=== PATIENT | female | born 1940 | race Caucasian/White ===

== ENCOUNTER 2019-01-23 10:39 | Inpatient (IN) | payer MEDICARE, OTHER ==
[~2019-01-23] VITALS: Ht 152.4 cm; Wt 61.0 kg
[2019-01-23] MEDS ORDERED: ONDANSETRON 4 MG INJ IV STA (12:09)
[2019-01-23] MEDS ORDERED: morphine 4 MG/ML VIAL IV STA (12:09)
[2019-01-23] MEDS ORDERED: FAMOTIDINE 20 MG TAB PO STA (12:09)
[2019-01-23] MEDS ORDERED: SOD CHLORIDE 0.9% 1,000 ML IV STA (12:09)
--- NOTE | 2019-01-23 12:20 | ERD ---
ER Documentation Chief Complaint Chief Complaint EPIGASTRIC PAIN FOR 2 DAYS, N/V/D YESTERDAY, NOT TODAY. PAIN GOES TO BACK. HPI 78-year-old female no significant past medical history presents with her daughter who is interpreting. The patient has had approximately 2 days of epigastric abdominal pain that radiates to the bilateral back. Patient notes the pain is sharp, with associated nausea and vomiting. The emesis is nonbloody and nonbilious. 2 episodes of looser stool. No recent travel, sick contacts, antibiotics. She denies any chest pain or exertional symptoms. No clear triggers or alleviating factors. She denies any fevers. No abdominal surgery history. Symptoms are moderate to severe currently. ROS All systems reviewed and are negative except as per history of present illness. Medications Home Meds Discontinued Reported Medications [None] No Conflict Check 08/15/09 Allergies Allergies: Coded Allergies: No Known Drug Allergies (Verified Allergy, Unknown, 01/23/19) PMhx/Soc History of Surgery: No Hx Neurological Disorder: No Hx Respiratory Disorders: No Hx Cardiac Disorders: No Hx Miscellaneous Medical Probl: No Hx Alcohol Use: No Hx Substance Use: No Hx Tobacco Use: No FmHx Family History: No diabetes Physical Exam Vitals Vital Signs Date Temp Pulse Resp B/P (MAP) Pulse Ox O2 O2 Flow FiO2 Time Delivery Rate 01/23/19 67 14 178/71 98 Room Air 13:58 (106) 01/23/19 62 20 186/72 95 Room Air 12:34 (110) 01/23/19 97.5 73 18 218/79 98 10:42 (125) Physical Exam General: Well developed, well nourished, no acute distress Head: Normocephalic, atraumatic. Eyes: Pupils equally reactive, EOM intact ENT: Moist mucous membranes Neck: Supple, no lymphadenopathy Respiratory: Lungs clear bilaterally, no distress Cardiovascular: RRR, no murmurs, rubs, or gallops Abdominal: Soft with very mild epigastric abdominal tenderness, negative Amin sign, no tenderness to McBurney's point, no pulsatile mass. : Deferred MSK: No edema, no unilateral swelling, 5/5 strength Neurologic: Alert and oriented, moving all extremities, normal speech, no focal weakness, no cerebellar signs Skin: No rash Psych: Normal mood Result Diagram: 01/23/19 1218 01/23/19 1218 Results 24 hrs Laboratory Tests Test 01/23/19 12:18 White Blood Count 8.0 10^3/ul Red Blood Count 4.96 10^6/ul Hemoglobin 14.4 g/dl Hematocrit 43.1 % Mean Corpuscular Volume 86.9 fl Mean Corpuscular Hemoglobin 29.0 pg Mean Corpuscular Hemoglobin Concent 33.4 g/dl Red Cell Distribution Width 12.8 % Platelet Count 265 10^3/UL Mean Platelet Volume 9.5 fl Immature Granulocytes % 0.300 % Neutrophils % 78.3 % Lymphocytes % 14.3 % Monocytes % 5.8 % Eosinophils % 0.4 % Basophils % 0.9 % Nucleated Red Blood Cells % 0.0 /100WBC Immature Granulocytes # 0.020 10^3/ul Neutrophils # 6.2 10^3/ul Lymphocytes # 1.1 10^3/ul Monocytes # 0.5 10^3/ul Eosinophils # 0.0 10^3/ul Basophils # 0.1 10^3/ul Nucleated Red Blood Cells # 0.0 10^3/ul Sodium Level 141 mmol/L Potassium Level 4.0 mmol/L Chloride Level 103 mmol/L Carbon Dioxide Level 28 mmol/L Anion Gap 10 Blood Urea Nitrogen 15 mg/dl Creatinine 0.70 mg/dl Est Glomerular Filtrat Rate mL/min mL/min Glucose Level 105 mg/dl Calcium Level 9.1 mg/dl Total Bilirubin 0.5 mg/dl Direct Bilirubin 0.00 mg/dl Indirect Bilirubin 0.5 mg/dl Aspartate Amino Transf (AST/SGOT) 139 IU/L Alanine Aminotransferase (ALT/SGPT) 105 IU/L Alkaline Phosphatase 120 IU/L Troponin I < 0.012 ng/ml Total Protein 8.4 g/dl Albumin 4.1 g/dl Globulin 4.30 g/dl Albumin/Globulin Ratio 0.95 Lipase 337 U/L Current Medications Medications Dose Sig/Thomas Start Time Status Last (Trade) Ordered Route PRN Stop Time Admin Dose Reason Admin Sodium 1,000 ml @ Q1H STAT 01/23/19 DC 01/23/19 Chloride 1,000 mls/hr IV 12:09 01/23/19 12:57 13:08 Morphine 4 mg ONCE STAT 01/23/19 DC 01/23/19 Sulfate IV 12:09 01/23/19 12:58 (morphine) 12:14 Ondansetron 4 mg ONCE STAT 01/23/19 DC 01/23/19 HCl (Zofran IV 12:09 01/23/19 12:57 Inj) 12:14 Famotidine 20 mg ONCE STAT 01/23/19 DC 01/23/19 (Pepcid) PO 12:09 01/23/19 12:58 12:14 IV Flush 10 ml STK-MED 01/23/19 DC 01/23/19 (NS 10 ml) ONCE .ROUTE 13:01/23/19 13:13 13:09 Sodium 100 ml @ ud STK-MED 01/23/19 DC 01/23/19 Chloride ONCE .ROUTE 13:01/23/19 13:13 13:09 Iohexol 100 ml @ ud STK-MED 01/23/19 DC 01/23/19 ONCE .ROUTE 13:01/23/19 13:14 13:09 Ampicillin 100 ml @ ONCE ONCE 01/23/19 Sodium/ 100 mls/hr IVPB 14:00 01/23/19 Sulbactam 14:59 Sodium Procedures/MDM EKG, MONITORS, & DIAGNOSTIC IMAGING: EKG: I reviewed and interpreted a 12-lead EKG. Rhythm: Normal sinus rhythm ST Changes: No contiguous ST segment elevations T waves: No contiguous T wave inversions Impression: [No evidence of acute cardiac ischemia] CTA abdomen and pelvis IMPRESSION: Calcified plaque wall aorta without dissection or aneurysm. Cholelithiasis. Question gallbladder wall thickening versus pericholecystic fluid. Consider sonographic correlation if clinically indicated. 15 mm cystic mass head of pancreas. It is unclear if this represents a cystic tumor of the pancreas, small choledochal cyst or possibly a pseudocyst. This was present on the prior CT and is stable. Chronic compression fracture L2. 2 mm anterolisthesis L4-L5 without spondylolisthesis. US GB IMPRESSION: Cholelithiasis with gallbladder wall thickening and pericholecystic fluid may represent acute cholecystitis. This could be confirmed with a HIDA scan if clinically indicated.. LAB INTERPRETATION: I reviewed the laboratory testing and it shows mild transaminitis MEDICAL DECISION MAKING: Patient has nonspecific epigastric abdominal pain. The patient has nausea vomiting and loose stools which does raise the concern from a likely viral process. However, the patient's blood pressure is elevated. She does not have a known diagnosis of hypertension and therefore this could be sales representative facility services of the patient's pain however, the patient is describing abdominal pain rating to the back in the setting of significantly elevated blood pressure. This does raise a concern for possible aortic process though the patient does not have any obvious risk factors other than age. Patient has no chest pain no exertional symptoms therefore less likely acute coronary syndrome. Patient has no urinary symptoms, low concern for stone or urinary tract infection. Patient will benefit from broad work-up including laboratory testing, cardiac s creening and CTA of the abdomen and pelvis. ER COURSE: * An IV was established and the patient was given IV fluids and pain control medication. * Mild transaminitis prompt ultrasound of the gallbladder * ultrasound and CT are concerning for acute cholecystitis which would explain the patient's symptoms. The patient is n.p.o., started on Unasyn. No signs of sepsis. * General surgeon on-call was notified. CONSULTATION: General surgeon: Dr. Sanford DISPOSITION PLAN: Accepting care team and consultations: I discussed the current laboratory data, diagnostic imaging and emergency care provided. Admitting team: Panel team Admitting team indication: Insurance directed Departure Diagnosis: Primary Impression: Abdominal pain Abdominal location: epigastric Qualified Codes: R10.13 - Epigastric pain Additional Impression: Cholecystitis Condition: Stable LULY HARPER MD Jan 23, 2019 12:20
[2019-01-23] MEDS ORDERED: IOHEXOL 100 ML ONE (13:08)
[2019-01-23] MEDS ORDERED: SOD CHLORIDE 0.9% 100 ML ONE (13:08)
[2019-01-23] MEDS ORDERED: AMPICILLIN/SULB 3 GM/NS (PMX) 100 ML IVPB ONE (14:00)
[2019-01-23] MEDS ORDERED: ONDANSETRON 4 MG INJ IV PRN (15:00)
[2019-01-23] MEDS ORDERED: ACETAMINOPHEN 325 MG TAB PO PRN ×2 (15:00→17:30)
--- NOTE | 2019-01-23 17:16 | HP ---
Date/Time of Note Date/Time of Note DATE: 01/23/19 TIME: 17:07 Assessment/Plan VTE Prophylaxis SCD applied (from Nsg): Yes Pharmacological prophylaxis: NA/contraindicated Pharm contraindication: surgical contra Lines/Catheters IV Catheter Type (from Nrsg): Peripheral IV Assessment/Plan Hospital Course 1. Abdominal pain secondary to gallstone pancreatitis Lipase is elevated and ultrasound abdomen shows cholelithiasis with possible cholecystitis Surgery consultation obtained and plan is for lap snehal tomorrow, patient is medically stable for DC with no cardiac history or significant comorbidities, benefits outweigh risk N.p.o. except ice chips Monitor lipase No evidence of sepsis and hence no indication for antibiotics at this time 2. Transaminitis MRCP to rule out choledocholithiasis 3. Pancreatic cystic mass CT abdomen shows a 15 mm mass which may be a cystic tumor of the pancreas or small choledochal cyst or possibly a pseudocyst. Mass was present on prior CT 10 years ago and is stable No further inpatient work-up at this time as mass is stable, outpatient follow- up 4. Chronic compression fractures-asymptomatic CT also shows Chronic compression fracture L2. 2 mm anterolisthesis L4-L5 without spondylolisthesis Prophylaxis: SCDs Result Diagram: 01/23/19 1218 01/23/19 1218 Results 24hrs Laboratory Tests Test 01/23/19 12:18 White Blood Count 8.0 Red Blood Count 4.96 Hemoglobin 14.4 Hematocrit 43.1 Mean Corpuscular Volume 86.9 Mean Corpuscular Hemoglobin 29.0 Mean Corpuscular Hemoglobin Concent 33.4 Red Cell Distribution Width 12.8 Platelet Count 265 Mean Platelet Volume 9.5 Immature Granulocytes % 0.300 Neutrophils % 78.3 H Lymphocytes % 14.3 L Monocytes % 5.8 Eosinophils % 0.4 Basophils % 0.9 Nucleated Red Blood Cells % 0.0 Immature Granulocytes # 0.020 Neutrophils # 6.2 Lymphocytes # 1.1 Monocytes # 0.5 Eosinophils # 0.0 Basophils # 0.1 Nucleated Red Blood Cells # 0.0 Sodium Level 141 Potassium Level 4.0 Chloride Level 103 Carbon Dioxide Level 28 Anion Gap 10 Blood Urea Nitrogen 15 Creatinine 0.70 Est Glomerular Filtrat Rate mL/min Glucose Level 105 Calcium Level 9.1 Total Bilirubin 0.5 Direct Bilirubin 0.00 Indirect Bilirubin 0.5 Aspartate Amino Transf (AST/SGOT) 139 H Alanine Aminotransferase (ALT/SGPT) 105 H Alkaline Phosphatase 120 Troponin I < 0.012 Total Protein 8.4 H Albumin 4.1 Globulin 4.30 H Albumin/Globulin Ratio 0.95 Lipase 337 H HPI/ROS Admit Date/Time Admit Date/Time January 23, 2019 Hx of Present Illness Patient is a 78-year-old female with no sniffing medical history, patient presents with 2 days of progressive worsening epigastric pain with radiation to the back. Pain is described as sharp and associated with nausea and nonbilious, nonbloody vomiting. Patient denies such symptoms in the past, patient denies travel history or sick contacts. In the ER lipase and LFTs were noted to be elevated, ultrasound of the abdomen showed likely cholecystitis, abdominal angiography showed cholelithiasis and possible cholecystitis, stable 15 mm cystic mass head of the pancreas and chronic compression fractures. Patient's pain has improved with medications in the ER. Patient has no other complaints this time. ROS Constitutional: no complaints, improved Eyes: no complaints ENT: no complaints Respiratory: no complaints Cardiovascular: no complaints Gastrointestinal: pain, nausea, vomiting Genitourinary: no complaints Musculoskeletal: no complaints Skin: no complaints Neurologic: no complaints Endocrine: no complaints Lymphatic: no complaints Psychological: no complaints, nl mood/affect Immunologic: no complaints PMH/Family/Social Past Medical History Medical History: no pertinent history Medications Current Medications Ondansetron HCl (Zofran Inj) 4 mg BRIDGE ORDER PRN IV NAUSEA/VOMITING; Start 01/23/19 at 15:00; Stop 01/24/19 at 14:59 Acetaminophen (Tylenol Tab) 650 mg ER BRIDGE PRN PO .MILD PAIN 1-3 OR TEMP; Start 01/23/19 at 15:00; Stop 01/24/19 at 14:59 Coded Allergies: No Known Drug Allergies (Verified Allergy, Unknown, 01/23/19) Past Surgical History Past Surgical Hx: no surgical history Family History Significant Family History: no pertinent family hx Social History Alcohol Use: rarely Smoking Status: Never smoker Drug Use: none Exam/Review of Systems Vital Signs Vitals Vital Signs Date Temp Pulse Resp B/P (MAP) Pulse Ox O2 O2 Flow FiO2 Time Delivery Rate 01/23/19 61 15 172/66 98 Room Air 16:20 (101) 01/23/19 97.5 10:42 Exam Constitutional: alert, oriented Respiratory: clear to auscultation Cardiovascular: regular rate and rhythm Gastrointestinal: soft; No distended Musculoskeletal: nl extremities to inspection YOLANDE GUILLEN Jan 23, 2019 17:16
[2019-01-23 17:28] VITALS: Ht 152.4 cm; Wt 61.0 kg
[2019-01-23] MEDS ORDERED: NACL 0.9% 3 ML SYG IV SCH (17:30)
[2019-01-23] MEDS ORDERED: DOCUSATE SODIUM 100 MG CAP PO PRN (17:30)
[2019-01-23] MEDS ORDERED: morphine 2 MG INJ IV PRN (17:30)
[2019-01-23] MEDS ORDERED: HYDROCODONE/APAP (5/325) TAB PO PRN (17:30)
[2019-01-23 17:32] VITALS: BP 169/76; PULSE 63
[2019-01-23] MEDS: 1/2 NS + KCL 20 MEQ 1,000 ML IV SCH (18:21)
[2019-01-23] MEDS: hydrALAzine 20 MG INJ IV PRN (18:22)
[2019-01-23 19:35] VITALS: BP 148/67; PULSE 86; RESP 18
[2019-01-23] MEDS ORDERED: ZOLPIDEM 5 MG TAB PO PRN (21:00)
[2019-01-24] VITALS (26 sets, daily range): BP systolic 111–159; BP diastolic 4–75; PULSE 75–100; RESP 16–19
[2019-01-24] MEDS: ONDANSETRON 4 MG INJ IV PRN ×2 (03:16→13:15)
[2019-01-24] MEDS: 1/2 NS + KCL 20 MEQ 1,000 ML IV SCH ×3 (03:23→12:17)
[2019-01-24] MEDS: hydrALAzine 20 MG INJ IV PRN (07:21)
--- NOTE | 2019-01-24 13:15 | PN ---
Date/Time of Note Date/Time of Note DATE: 01/24/19 TIME: 13:13 Assessment/Plan VTE Prophylaxis Risk score (from Ns)>0 risk: 5 SCD applied (from Ns): Yes Pharmacological prophylaxis: NA/contraindicated Pharm contraindication: surgical contra Lines/Catheters IV [facility]ter Type (from [facility]): Peripheral IV Urinary Cath still in place: No Assessment/Plan Hospital Course 1. Abdominal pain secondary to gallstone pancreatitis Lipase is elevated and ultrasound abdomen shows cholelithiasis with possible cholecystitis Surgery consultation obtained and plan is for lap snehal today, patient is medically stable for DC with no cardiac history or significant comorbidities, benefits outweigh risk N.p.o. except ice chips Lipase is trending down No evidence of sepsis and hence no indication for antibiotics at this time 2. Transaminitis LFTs are trending down No indication for MRCP or GI consultation at this time per surgery, patient will have an intraoperative cholangiogram and GI will be consulted if indicated 3. Pancreatic cystic mass CT abdomen shows a 15 mm mass which may be a cystic tumor of the pancreas or small choledochal cyst or possibly a pseudocyst. Mass was present on prior CT 10 years ago and is stable No further inpatient work-up at this time as mass is stable, outpatient follow- up 4. Chronic compression fractures-asymptomatic CT also shows Chronic compression fracture L2. 2 mm anterolisthesis L4-L5 without spondylolisthesis Prophylaxis: SCDs DC planning: Plans for surgery today, anticipate DC home in 1 to 2 days Result Diagram: 01/24/19 0423 01/24/19 0422 Results 24hrs Laboratory Tests Test 01/24/19 04:22 01/24/19 04:23 Sodium Level 138 Potassium Level 4.4 Chloride Level 104 Carbon Dioxide Level 26 Anion Gap 8 Blood Urea Nitrogen 11 Creatinine 0.71 Est Glomerular Filtrat Rate mL/min Glucose Level 105 Calcium Level 8.9 Phosphorus Level 4.2 Magnesium Level 1.7 Total Bilirubin 0.6 Direct Bilirubin 0.00 Indirect Bilirubin 0.6 Aspartate Amino Transf (AST/SGOT) 85 H Alanine Aminotransferase (ALT/SGPT) 85 H Alkaline Phosphatase 106 Total Protein 7.6 Albumin 3.8 Globulin 3.80 H Albumin/Globulin Ratio 1.00 Lipase 176 White Blood Count 9.0 Red Blood Count 4.75 Hemoglobin 13.7 Hematocrit 41.4 Mean Corpuscular Volume 87.2 Mean Corpuscular Hemoglobin 28.8 L Mean Corpuscular Hemoglobin Concent 33.1 Red Cell Distribution Width 13.1 Platelet Count 259 Mean Platelet Volume 10.0 Immature Granulocytes % 0.400 Neutrophils % 83.6 H Lymphocytes % 9.5 L Monocytes % 5.8 Eosinophils % 0.0 Basophils % 0.7 Nucleated Red Blood Cells % 0.0 Immature Granulocytes # 0.040 H Neutrophils # 7.5 Lymphocytes # 0.9 Monocytes # 0.5 Eosinophils # 0.0 Basophils # 0.1 Nucleated Red Blood Cells # 0.0 Hemoglobin A1c 5.1 Hepatitis B Surface Antigen NEGATIVE Hepatitis B Core Total Antibody NEGATIVE Hepatitis C Antibody NEGATIVE Subjective 24 Hr Interval Summary Constitutional: no complaints Exam/Review of Systems Exam Vitals Vital Signs Date Temp Pulse Resp B/P (MAP) Pulse Ox O2 O2 Flow FiO2 Time Delivery Rate 01/24/19 97.6 88 18 159/75 92 Room Air 07:37 (103) Intake and Output 01/23/19 01/23/19 01/24/19 1515:00 23:00 07:00 OutputOutput Total 1400 ml BalanceBalance -1400 ml Constitutional: alert, oriented Respiratory: clear to auscultation Cardiovascular: regular rate and rhythm Gastrointestinal: soft; No distended Musculoskeletal: nl extremities to inspection Results Results 24hrs Laboratory Tests Test 01/24/19 04:22 01/24/19 04:23 Sodium Level 138 Potassium Level 4.4 Chloride Level 104 Carbon Dioxide Level 26 Anion Gap 8 Blood Urea Nitrogen 11 Creatinine 0.71 Est Glomerular Filtrat Rate mL/min Glucose Level 105 Calcium Level 8.9 Phosphorus Level 4.2 Magnesium Level 1.7 Total Bilirubin 0.6 Direct Bilirubin 0.00 Indirect Bilirubin 0.6 Aspartate Amino Transf (AST/SGOT) 85 H Alanine Aminotransferase (ALT/SGPT) 85 H Alkaline Phosphatase 106 Total Protein 7.6 Albumin 3.8 Globulin 3.80 H Albumin/Globulin Ratio 1.00 Lipase 176 White Blood Count 9.0 Red Blood Count 4.75 Hemoglobin 13.7 Hematocrit 41.4 Mean Corpuscular Volume 87.2 Mean Corpuscular Hemoglobin 28.8 L Mean Corpuscular Hemoglobin Concent 33.1 Red Cell Distribution Width 13.1 Platelet Count 259 Mean Platelet Volume 10.0 Immature Granulocytes % 0.400 Neutrophils % 83.6 H Lymphocytes % 9.5 L Monocytes % 5.8 Eosinophils % 0.0 Basophils % 0.7 Nucleated Red Blood Cells % 0.0 Immature Granulocytes # 0.040 H Neutrophils # 7.5 Lymphocytes # 0.9 Monocytes # 0.5 Eosinophils # 0.0 Basophils # 0.1 Nucleated Red Blood Cells # 0.0 Hemoglobin A1c 5.1 Hepatitis B Surface Antigen NEGATIVE Hepatitis B Core Total Antibody NEGATIVE Hepatitis C Antibody NEGATIVE Medications Medication Current Medications Potassium Chloride/Sodium Chloride 1,000 ml @ 125 mls/hr Q8H IV Last administered on 01/24/19 12:17; Admin Dose 125 MLS/HR; Start 01/23/19 at 17:14 IV Flush (NS 3 ml) 3 ml PER PROTOCOL IV ; Start 01/23/19 at 17:30 Ondansetron HCl (Zofran Inj) 4 mg Q6H PRN IV NAUSEA/VOMITING Last administered on 01/24/19 03:16; Admin Dose 4 MG; Start 01/23/19 at 17:30 Acetaminophen (Tylenol Tab) 650 mg Q6H PRN PO .PAIN 1-3 OR TEMP Last administered on 01/24/19 01:06; Admin Dose 650 MG; Start 01/23/19 at 17:30 Acetaminophen/ Hydrocodone Bitart ([place] (5/325)) 1 tab Q6H PRN PO .MOD PAIN 4- 6 Last administered on 01/24/19 07:17; Admin Dose 1 TAB; Start 01/23/19 at 17:30 Morphine Sulfate (morphine) 2 mg Q4H PRN IV .SEVERE PAIN 7-10; Start 01/23/19 at 17:30 Docusate Sodium (Colace) 100 mg Q12H PRN PO .CONSTIPATION; Start 01/23/19 at 17:30 Zolpidem Tartrate (Ambien) 5 mg QHS PRN PO .INSOMNIA; Start 01/23/19 at 21:00 Hydralazine HCl (Apresoline) 10 mg Q4H PRN IV SBP>170 Last administered on 01/24/19 07:21; Admin Dose 10 MG; Start 01/23/19 at 18:30 YOLANDE GUILLEN Jan 24, 2019 13:15
--- NOTE | 2019-01-24 16:57 | CONS ---
Assessment/Plan Assessment/Plan Assessment/Plan (Daily) Cholecystitis, mild gallstone pancreatitis. For laparoscopic cholecystectomy with intraoperative cholangiogram. We discussed risks and benefits were discussed possible side effects, possible complications including but not limited to bleeding, infection, injury to other organs, anesthesia complication, patient understood risk and benefits and wished to proceed. Consultation Date/Type/Reason Admit Date/Time January 23, 2019 Date of Consultation: Jan 24, 2019 Type of Consult Surgical Date/Time of Note DATE: 01/24/19 TIME: 16:55 Hx of Present Illness 78-year-old female no significant past medical history presents with her daughter who is interpreting. The patient has had approximately 2 days of epigastric abdominal pain that radiates to the bilateral back. Patient notes the pain is sharp, with associated nausea and vomiting. The emesis is nonbloody and nonbilious. 2 episodes of looser stool. No recent travel, sick contacts, antibiotics. She denies any chest pain or exertional symptoms. No clear triggers or alleviating factors. She denies any fevers. No abdominal surgery history. Symptoms are moderate to severe currently. Laboratory test revealed mild lipase up to 300., Other liver function tests were normal, and no leukocytosis. Ultrasound showed gallstones with pericholecystic fluid and thickened gallbladder wall. Also a small cystic lesion in the head of pancreas. By the time I seen the patient the pain subsided. Constitutional: no complaints, improved Eyes: no complaints ENT: no complaints Respiratory: no complaints Cardiovascular: no complaints Gastrointestinal: no complaints Genitourinary: no complaints Musculoskeletal: no complaints Skin: no complaints Neurologic: no complaints Endocrine: no complaints Lymphatic: no complaints Psychological: no complaints, nl mood/affect Immunologic: no complaints Past Medical History Medical History: no pertinent history Home Meds Discontinued Reported Medications [None] No Conflict Check 08/15/09 Medications Current Medications Potassium Chloride/Sodium Chloride 1,000 ml @ 125 mls/hr Q8H IV Last administered on 01/24/19at 12:17; Admin Dose 125 MLS/HR; Start 01/23/19 at 17:14 IV Flush (NS 3 ml) 3 ml PER PROTOCOL IV ; Start 01/23/19 at 17:30 Ondansetron HCl (Zofran Inj) 4 mg Q6H PRN IV NAUSEA/VOMITING Last administered on 01/24/19at 13:15; Admin Dose 4 MG; Start 01/23/19 at 17:30 Acetaminophen (Tylenol Tab) 650 mg Q6H PRN PO .PAIN 1-3 OR TEMP Last administered on 01/24/19at 01:06; Admin Dose 650 MG; Start 01/23/19 at 17:30 Acetaminophen/ Hydrocodone Bitart ([place] (5/325)) 1 tab Q6H PRN PO .MOD PAIN 4- 6 Last administered on 01/24/19at 07:17; Admin Dose 1 TAB; Start 01/23/19 at 17:30 Morphine Sulfate (morphine) 2 mg Q4H PRN IV .SEVERE PAIN 7-10; Start 01/23/19 at 17:30 Docusate Sodium (Colace) 100 mg Q12H PRN PO .CONSTIPATION; Start 01/23/19 at 17:30 Zolpidem Tartrate (Ambien) 5 mg QHS PRN PO .INSOMNIA; Start 01/23/19 at 21:00 Hydralazine HCl (Apresoline) 10 mg Q4H PRN IV SBP>170 Last administered on 01/24/19at 07:21; Admin Dose 10 MG; Start 01/23/19 at 18:30 Allergies: Coded Allergies: No Known Drug Allergies (Verified Allergy, Unknown, 01/23/19) Past Surgical History Past Surgical Hx: no surgical history Social History Alcohol Use: rarely Smoking Status: Never smoker Drug Use: none Exam/Review of Systems Exam Vitals Vital Signs Date Temp Pulse Resp B/P (MAP) Pulse Ox O2 O2 Flow FiO2 Time Delivery Rate 01/24/19 98.0 97 18 148/4 (52) 90 Room Air 14:44 Intake and Output 01/23/19 01/23/19 01/24/19 1515:00 23:00 07:00 OutputOutput Total 1400 ml BalanceBalance -1400 ml Constitutional: alert, oriented, well developed Psych: no complaints, nl mood/affect Head: normocephalic, atraumatic Eyes: nl conjunctiva, EOMI, nl lids, nl sclera, PERRL ENMT: nl external ears & nose, nl lips & teeth, nl nasal mucosa & septum Neck: supple, non-tender Respiratory: clear to auscultation, normal air movement Cardiovascular: regular rate and rhythm, nl pulses Gastrointestinal: soft, nl liver, spleen, non-tender Musculoskeletal: nl extremities to inspection, nl gait and stance Extremities: normal pulses Neurological: DIABETES TRAINER II-XII intact, nl mental status, nl speech, nl strength Skin: nl turgor; No rash or lesions Lymph: nl lymph nodes Results Result Diagram: 01/24/193 01/24/192 Results 24hrs Laboratory Tests Test 01/24/19 04:22 01/24/19 04:23 Sodium Level 138 Potassium Level 4.4 Chloride Level 104 Carbon Dioxide Level 26 Anion Gap 8 Blood Urea Nitrogen 11 Creatinine 0.71 Est Glomerular Filtrat Rate mL/min Glucose Level 105 Calcium Level 8.9 Phosphorus Level 4.2 Magnesium Level 1.7 Total Bilirubin 0.6 Direct Bilirubin 0.00 Indirect Bilirubin 0.6 Aspartate Amino Transf (AST/SGOT) 85 H Alanine Aminotransferase (ALT/SGPT) 85 H Alkaline Phosphatase 106 Total Protein 7.6 Albumin 3.8 Globulin 3.80 H Albumin/Globulin Ratio 1.00 Lipase 176 White Blood Count 9.0 Red Blood Count 4.75 Hemoglobin 13.7 Hematocrit 41.4 Mean Corpuscular Volume 87.2 Mean Corpuscular Hemoglobin 28.8 L Mean Corpuscular Hemoglobin Concent 33.1 Red Cell Distribution Width 13.1 Platelet Count 259 Mean Platelet Volume 10.0 Immature Granulocytes % 0.400 Neutrophils % 83.6 H Lymphocytes % 9.5 L Monocytes % 5.8 Eosinophils % 0.0 Basophils % 0.7 Nucleated Red Blood Cells % 0.0 Immature Granulocytes # 0.040 H Neutrophils # 7.5 Lymphocytes # 0.9 Monocytes # 0.5 Eosinophils # 0.0 Basophils # 0.1 Nucleated Red Blood Cells # 0.0 Hemoglobin A1c 5.1 Hepatitis B Surface Antigen NEGATIVE Hepatitis B Core Total Antibody NEGATIVE Hepatitis C Antibody NEGATIVE Medications Medication Current Medications Potassium Chloride/Sodium Chloride 1,000 ml @ 125 mls/hr Q8H IV Last administered on 01/24/19at 12:17; Admin Dose 125 MLS/HR; Start 01/23/19 at 17:14 IV Flush (NS 3 ml) 3 ml PER PROTOCOL IV ; Start 01/23/19 at 17:30 Ondansetron HCl (Zofran Inj) 4 mg Q6H PRN IV NAUSEA/VOMITING Last administered on 01/24/19at 13:15; Admin Dose 4 MG; Start 01/23/19 at 17:30 Acetaminophen (Tylenol Tab) 650 mg Q6H PRN PO .PAIN 1-3 OR TEMP Last administered on 01/24/19at 01:06; Admin Dose 650 MG; Start 01/23/19 at 17:30 Acetaminophen/ Hydrocodone Bitart ([place] (5/325)) 1 tab Q6H PRN PO .MOD PAIN 4- 6 Last administered on 01/24/19at 07:17; Admin Dose 1 TAB; Start 01/23/19 at 17:30 Morphine Sulfate (morphine) 2 mg Q4H PRN IV .SEVERE PAIN 7-10; Start 01/23/19 at 17:30 Docusate Sodium (Colace) 100 mg Q12H PRN PO .CONSTIPATION; Start 01/23/19 at 17:30 Zolpidem Tartrate (Ambien) 5 mg QHS PRN PO .INSOMNIA; Start 01/23/19 at 21:00 Hydralazine HCl (Apresoline) 10 mg Q4H PRN IV SBP>170 Last administered on at 07:21; Admin Dose 10 MG; Start 01/23/19 at 18:30 HESHAM MAIER MD Jan 24, 2019 16:57
--- NOTE | 2019-01-24 17:05 | PREAC ---
Date/Time of Note Date/Time of Note DATE: 01/24/19 TIME: 17:03 Anesthesia Eval and Record Evaluation Time Pre-Procedure Interview DATE: 01/24/19 TIME: 17:03 Age 78 Sex female NPO: 8 hrs Preoperative diagnosis Acute cholecystitis Planned procedure Laparoscopic cholecystecomy Past Medical History Past Medical History: Includes Cardio: HTN Surgery & Anesthesia Issues No known issue Meds Anticoagulation: No Beta Marvin within 24 hr: No Reason Beta Marvin not given: Pt. not on B-Marvin Discontinued Reported Medications [None] No Conflict Check 08/15/09 Current Medications Potassium Chloride/Sodium Chloride 1,000 ml @ 125 mls/hr Q8H IV Last administered on 01/24/19at 12:17; Admin Dose 125 MLS/HR; Start 01/23/19 at 17:14 IV Flush (NS 3 ml) 3 ml PER PROTOCOL IV ; Start 01/23/19 at 17:30 Ondansetron HCl (Zofran Inj) 4 mg Q6H PRN IV NAUSEA/VOMITING Last administered on 01/24/19at 13:15; Admin Dose 4 MG; Start 01/23/19 at 17:30 Acetaminophen (Tylenol Tab) 650 mg Q6H PRN PO .PAIN 1-3 OR TEMP Last administered on 01/24/19at 01:06; Admin Dose 650 MG; Start 01/23/19 at 17:30 Acetaminophen/ Hydrocodone Bitart ([place] (5/325)) 1 tab Q6H PRN PO .MOD PAIN 4- 6 Last administered on 01/24/19at 07:17; Admin Dose 1 TAB; Start 01/23/19 at 17:30 Morphine Sulfate (morphine) 2 mg Q4H PRN IV .SEVERE PAIN 7-10; Start 01/23/19 at 17:30 Docusate Sodium (Colace) 100 mg Q12H PRN PO .CONSTIPATION; Start 01/23/19 at 17:30 Zolpidem Tartrate (Ambien) 5 mg QHS PRN PO .INSOMNIA; Start 01/23/19 at 21:00 Hydralazine HCl (Apresoline) 10 mg Q4H PRN IV SBP>170 Last administered on 01/24/19at 07:21; Admin Dose 10 MG; Start 01/23/19 at 18:30 Meds reviewed: Yes Allergies Coded Allergies: No Known Drug Allergies (Verified Allergy, Unknown, 01/23/19) Allergies Reviewed: Yes Labs/Studies Labs Reviewed: Reviewed by anesthesiologist Result Diagram: 01/24/19 0423 01/24/19 0422 Laboratory Tests 01/24/19 04:22 01/24/19 04:23 test: N/A Studies: ECG Pre-procedure Exam Last vitals Vital Signs Date Temp Pulse Resp B/P (MAP) Pulse Ox O2 O2 Flow FiO2 Time Delivery Rate 01/24/19 98.0 97 18 148/4 (52) 90 Room Air 14:44 Airway: Adequate mouth opening, Adequate thyromental dist Mallampati: Mallampati II Teeth: Normal Lung: Normal Heart: Normal ASA Physical Status ASA physical status: 2 Emergency: None Planned Anesthetic General/MAC: ETT, A Line Planned Pain Management Parenteral pain med, Local by surgeon Pre-operative Attestations Prior to commencing anesthesia and surgery, the patient was re-evaluated, there was verification of: *The patient's identity *The results of appropriate recent lab work and preoperative vital signs *The above evaluation not changing prior to induction *Anesthetic plan, risk benefits, alternative and complications discussed with patient/family; questions answered; patient/family understands, accepts and wishes to proceed. JERICA MASON MD Jan 24, 2019 17:05
[2019-01-24] MEDS ORDERED: BUPIVACAINE 0.5%/EPI (SDV) 30 ML INJ ONE (17:18)
[2019-01-24] MEDS ORDERED: IOHEXOL 300MG/ML 30 ML BTL ONE (17:18)
[2019-01-24] MEDS ORDERED: SEVOFLURANE 15 MIN ONE (17:21)
[2019-01-24] MEDS ORDERED: FENTAnyl 50 MCG/ML VIAL ONE ×2 (17:21→17:39)
[2019-01-24] MEDS ORDERED: PROPOFOL 200 MG INJ ONE (17:21)
[2019-01-24] MEDS ORDERED: CEFAZOLIN 1 GM INJ ONE (17:21)
[2019-01-24] MEDS ORDERED: GLYCOPYRROLATE 0.4 MG INJ ONE (17:21)
[2019-01-24] MEDS ORDERED: ROCURONIUM 50 MG INJ ONE (17:21)
[2019-01-24] MEDS ORDERED: LIDOCAINE 2% (SDV) 5 ML INJ ONE (17:21)
[2019-01-24] MEDS ORDERED: NEOSTIGMINE 3 MG/3 ML SYRINGE ONE (17:21)
[2019-01-24] MEDS ORDERED: PHENYLephrine (100 MCG/ML) 10ML SYG ONE (17:21)
[2019-01-24] MEDS ORDERED: SUCCINYLCHOLINE CHLORIDE 100 MG/5 ML SYG IV ONE (17:21)
[2019-01-24] MEDS ORDERED: ONDANSETRON 4 MG INJ ONE (17:59)
[2019-01-24] MEDS ORDERED: DEXAMETHASONE 4 MG/ML 5 ML INJ ONE (17:59)
[2019-01-24] MEDS ORDERED: LABETALOL HCL 20MG INJ ONE (18:27)
[2019-01-24] MEDS ORDERED: LABETALOL HCL 20MG INJ IV PRN (18:30)
[2019-01-24] MEDS ORDERED: ONDANSETRON 4 MG INJ IV PRN ×2 (18:30→19:00)
[2019-01-24] MEDS ORDERED: HYDROmorphONE 1 MG/5 ML IV SYRINGE IV PRN ×3 (18:30)
[2019-01-24] MEDS ORDERED: FENTAnyl 50 MCG/ML VIAL IV PRN ×2 (18:30)
[2019-01-24] MEDS ORDERED: hydrALAzine 20 MG INJ IV PRN (18:30)
--- NOTE | 2019-01-24 18:48 | OPR ---
Date/Time of Note Date/Time of Note DATE: 01/24/19 TIME: 18:45 Operative Report Procedure Date: Jan 24, 2019 Preoperative Diagnosis Acute cholecystitis Postoperative Diagnosis Acute cholecystitis Operation/Procedure Performed Laparoscopic cholecystectomy with intraoperative cholangiogram Surgeon see signature line Pricing Manager None Anesthesia Type: general Anesthesiologist: JERICA MASON MD Estimated Blood Loss: 0 - 10 ml's Transfusion none Specimen Gallbladder Grafts/Implants none Complications none Pt Condition Post Procedure: stable Disposition: PACU Indications 78-year-old female with acute attack of right upper quadrant pain confirmed to have gallstones with acute cholecystitis. Procedure Description The risks, benefits and alternatives of the procedure were discussed with the patient and informed consent was obtained. We discussed with the patient and the family possibility of the bleeding, infection, injury to other organs, bile ducts injury, retained stones and necessity of the ERCP. OPERATIVE PROCEDURE: The patient was brought to the operating room and placed supine. IV antibiotics were given. Venodynes were placed to both lower extremities. General endotracheal anesthesia was achieved. The abdomen was prepped and draped in a sterile fashion. 0.25% Marcaine with epinephrine was used for local anesthesia. A small infraumbilical incision was made and a Veress needle inserted. Intraperitoneal position was confirmed using the saline drop test. Carbon dioxide pneumoperitoneum was achieved with a good filling pressure to 15 mmHg. The 30-degree 5 mm video laparoscope was inserted through a 5-mm trocar placed in the right paramedian position just next to umbilicus. There was no evidence of injury after Veress needle and trocar insertion. Additional trocars were placed, a 12-mm subxiphoid trocar, and two 5-mm trocars at the right upper quadrant. The gallbladder was grasped at the fundus and elevated cephalad. The area at Calot's triangle was dissected using blunt and electrocautery dissection, and critical view was obtained. ICG imaging confirmed the correct identification of the biliary ducts. Clip placed across the cystic duct and artery. Small ductotomy was performed and the cholangiogram catheter was placed into the opening. C arm was placed over the table and cholangiogram was performed that confirmed correct identification of the cystic duct, normal size common duct and both right and left hepatic ducts. No filling defects in the the biliary tree. Free passage of contrast into the duodenum. The cystic duct was clipped additionally and then divided. The cystic artery was clipped x2 additionally. The gallbladder was dissected off the liver using electrocautery dissection and removed using an EndoCatch bag. The trocars were removed under direct visualization and no bleeding seen at the trocar sites. The pneumoperitoneum was reduced and the subxiphoid and umbilical trocar sites closed with 0 Vicryl to reapproximate the fascia. The trocar sites were reapproximated with 4-0 Monocryl sutures. Steri-Strips and sterile dressings were applied. The sponge and instrument counts were reported as correct x2. Estimated blood loss was 5 cc. The patient was woken from anesthesia, extubated, and transferred to the recovery room in stable condition. By the end of the procedure, the instrument and sponge counts were correct x2. STATEMENT OF PRESENCE: Dr. Sanford was present for the entire case. HESHAM SANFORD MD Jan 24, 2019 18:48
--- NOTE | 2019-01-24 18:50 | PAC ---
Date/Time of Note Date/Time of Note DATE: 01/24/19 TIME: 18:49 Post-Anesthesia Notes Post-Anesthesia Note Last documented vital signs T 100 RR 20 HR 103 BP 154/70 Sp02 100% Vital Signs Date Temp Pulse Resp B/P (MAP) Pulse Ox O2 O2 Flow FiO2 Time Delivery Rate 01/24/19 98.0 97 18 148/4 (52) 90 Room Air 14:44 Activity: WNL Respiratory function: WNL Cardiovascular function: WNL Mental status: Baseline Pain reasonably controlled: Yes Hydration appropriate: Yes Nausea/Vomiting absent: Yes JERICA MASON MD Jan 24, 2019 18:50
[2019-01-24] MEDS ORDERED: METOCLOPRAMIDE 10 MG INJ IV PRN (19:00)
[2019-01-24] MEDS ORDERED: IBUPROFEN 600 MG TAB PO PRN (19:00)
[2019-01-24] MEDS ORDERED: HYDROCODONE/APAP (5/325) TAB PO PRN (19:00)
[2019-01-24] MEDS ORDERED: HYDROmorphONE 0.5 MG/0.5 ML SYG IV PRN (19:00)
[2019-01-24] MEDS ORDERED: DIPHENHYDRAMINE 25 MG CAP PO PRN (19:00)
[2019-01-24] MEDS ORDERED: ACETAMINOPHEN 325 MG TAB PO PRN (19:00)
[2019-01-24] MEDS: D5W-0.45 NACL + KCL 20 MEQ 1,000 ML IV SCH (21:26)
[2019-01-25] VITALS: BP 121/61; PULSE 94; RESP 18
[2019-01-25] MEDS: 1/2 NS + KCL 20 MEQ 1,000 ML IV SCH ×2 (01:14→08:22)
[2019-01-25 04:00] VITALS: BP 133/65; PULSE 81; RESP 18
[2019-01-25] MEDS: D5W-0.45 NACL + KCL 20 MEQ 1,000 ML IV SCH (06:08)
[2019-01-25 07:48] VITALS: BP 148/69; PULSE 73; RESP 18
--- NOTE | 2019-01-25 15:00 | PDOCDIS ---
Discharge Instructions DIAGNOSIS Discharge Diagnosis Cholecystitis CONDITION [id number] Patient Condition: [id number] Stable FOLLOW UP/APPOINTMENTS Follow-up Plan Make an appointment to see Dr Sanford in the next 1-2 weeks LUCAS PIZANO MD Jan 25, 2019 15:00
--- NOTE | 2019-01-25 15:02 | DS ---
Date/Time of Note Date/Time of Note DATE: 01/25/19 TIME: 15:00 Discharge Summary Admission/Discharge Info Admit Date/Time Jan 23, 2019 at 14:48 Discharge Date/Time Discharge Diagnosis Cholecystitis Patient Condition: Stable Hospital Course The patient was found to have acute cholecystitis. She was treated with IV antibiotics. She was seen by Dr Sanford who took her to the OR for cholecystectomy which was done without complication. She is tolerating PO and has no current concerning symptoms. She will seek further care as an outpatient and follow up with Dr Sanford Home Meds Discontinued Reported Medications [None] No Conflict Check 08/15/09 Follow-up Plan Make an appointment to see Dr Sanford in the next 1-2 weeks Primary Care Provider Not On Staff Doctor Pending Labs Laboratory Tests Test 01/25/19 04:52 Sodium Level 138 mmol/L (135-144) Potassium Level 4.6 mmol/L (3.5-5.1) Chloride Level 107 mmol/L (97-110) Carbon Dioxide Level 23 mmol/L (21-31) Anion Gap 8 (5-13) Blood Urea Nitrogen 14 mg/dl (7-20) Creatinine 0.81 mg/dl (0.44-1.00) Est Glomerular Filtrat Rate mL/min mL/min (>60) Glucose Level 194 mg/dl (70-220) Calcium Level 8.5 mg/dl (8.4-10.2) Total Bilirubin 0.5 mg/dl (0.2-1.3) Direct Bilirubin 0.00 mg/dl (0.00-0.20) Indirect Bilirubin 0.5 mg/dl (0-1.1) Aspartate Amino Transf (AST/SGOT) 76 IU/L (15-46) Alanine Aminotransferase (ALT/SGPT) 73 IU/L (13-69) Alkaline Phosphatase 79 IU/L (42-121) Total Protein 7.2 g/dl (6.1-8.1) Albumin 3.5 g/dl (3.3-4.9) Globulin 3.70 g/dl (1.3-3.2) Albumin/Globulin Ratio 0.94 Lipase 51 U/L (23-300) LUCAS PIZANO MD Jan 25, 2019 15:02
[2019-01-25 16:56] VITALS: BP 135/63; PULSE 80; RESP 18
[2019-01-25 19:28] VITALS: BP 126/60; PULSE 75; RESP 18
== END 2019-01-25 19:00 | disposition home or self-care (01) | DRG 417 ==
LOC: E/R 10:39 → MS1 14:44 → UNDOADMIN 14:44 → MS1 14:48
PROVIDERS: ADMIT Internal Medicine; ATTEND Internal Medicine
PROC: 0FT44ZZ Resection of Gallbladder, Percutaneous Endoscopic Approach (ICD-10-PCS; 2019-01-24)
PROC: 0FT44ZZ Resection of Gallbladder, Percutaneous Endoscopic Approach (ICD-10-PCS; principal; 2019-01-24 09:30)
DX: K81.0 Acute cholecystitis (principal); K85.10 Biliary acute pancreatitis without necrosis or infection; K86.2 Cyst of pancreas; M48.50XA Collapsed vertebra, not elsewhere classified, site unspecified, initial encounter for fracture; I10 Essential (primary) hypertension
CPT/HCPCS: 36415; 74300; 75635; 76705; 80053; 83036; 83690; 83735; 84100; 84484; 85025; 86704; 86709; 86803; 87340; 88304; 93005; 96374; 96375; J0295; J0360; J0690; J1100; J2270; J2370; J2405; J2710; J3010; J3480; J7030; Q9967